=== PATIENT | male | born 1985 ===

== ENCOUNTER 2018-12-10 13:02 | Emergency (ER) | payer OTHER, SELFPAY ==
[2018-12-10 13:19] VITALS: BP 141/95; PULSE 118; RESP 20; TEMP 36.8; O2SAT 100
--- NOTE | 2018-12-10 14:37 | ED.SKABFB ---
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 He states that he has numerous spots on his truck which started out looking like small red ingrown hairs 2 days ago, however this particular spot is much worse today, he thinks irritated by his flight suit and harness ( he flew earlier). He has not had fever. He states he has only traveled locally recently and no known exposures however he was in a friend's hot tub over the weekend prior to this starting. He has some lesions on his back and 1 on his left gluteal area, none on the arms or legs. He denies any other new complaints. Related Data Home Medications Medication Instructions Recorded Confirmed emtricitabine-tenofovir (TDF) 1 tab PO DAILY 12/10/18 [Truvada] Previous Rx's Medication Instructions Recorded levofloxacin [Levaquin] 750 mg PO Q24H 10 Days #10 tab 12/10/18 Review of Systems <Zahida Garvey PA-C - Last Filed: 12/10/18 21:38> Review of Systems ROS Unobtainable: All systems reviewed & are unremarkable except as noted in HPI and below PFSH <Zahida Garvey PA-C - Last Filed: 12/10/18 21:38> Medical History Healthy adult male (Chronic) No pertinent family history (Chronic) Surgical History No pertinent past surgical history (Chronic) Social History Smoking Status: Never smoker Social History Smoking Status: Never smoker Exam <Zahida Garvey PA-C - Last Filed: 12/10/18 21:38> Narrative Exam Narrative: GENERAL APPEARANCE: Patient sitting comfortably, in no distress. LUNGS: Clear to auscultation bilaterally. HEART: Rate and rhythm regular without murmur, normal S1 and S2, no S3 or S4. DERMATOLOGIC: Erythematous papules scattered over the chest and back ranging in size from few mm to 1 cm in diameter. There are 2 lesions on the right nipple, and encompassing the left nipple there is erythema measuring 4 x 7 cm surrounding, slightly indurated, no fluctuance or warmth, moderately tender. There is an occasional pustular lesion, no vesicles. No drainage. No exanthem on the extremities Initial Vital Signs Initial Vital Signs: Vital Signs Temperature 98.3 F 12/10/18 13:19 Pulse Rate 118 H 12/10/18 13:19 Respiratory Rate 20 12/10/18 13:19 Blood Pressure 141/95 H 12/10/18 13:19 Pulse Oximetry 100 12/10/18 13:19 <Ancelmo Neal DO - Last Filed: 12/11/18 07:01> Initial Vital Signs Initial Vital Signs: Vital Signs Temperature 98.3 F 12/10/18 13:19 Pulse Rate 118 H 12/10/18 13:19 Respiratory Rate 20 12/10/18 13:19 Blood Pressure 141/95 H 12/10/18 13:19 Pulse Oximetry 100 12/10/18 13:19 Course <Zahida Garvey PA-C - Last Filed: 12/10/18 21:38> Additional Information: No clear abcess to drain today, multiple lesions, suspect the large 1 around the left nipple is exacerbated secondary to patient's flight harness. Advised to avoid wearing that. will treat with Levaquin due to patient being in hot tub prior to onset of this, though certainly may be from another source. Advised to follow up with medical at [facility] in the next day or 2 for recheck. Advised to return if acutely worsening and he is agreeable. Vital Signs - 8 hr 12/10/18 15:00 Pulse Rate 99 H Respiratory Rate 18 Blood Pressure [Left Arm] 134/76 Pulse Oximetry 98 <Ancelmo Neal DO - Last Filed: 12/11/18 07:01> Vital Signs - 8 hr 12/10/18 15:00 Pulse Rate 99 H Respiratory Rate 18 Blood Pressure [Left Arm] 134/76 Pulse Oximetry 98 Discharge Plan Departure Patient Disposition: Home Clinical Impression: Cellulitis Discharge Date/Time: 12/10/18 15:45 Interventions: ED Discharge Assessment Last Done: 12/10/18 15:46 Instructions: DI for Cellulitis -- Adult Activity Restrictions/Additional Instructions: [place] or return here if you have acutely worsening symptoms, i.e. rapidly spreading redness, pain, high fever. Otherwise, please start the antibiotic right away. [place] and avoid wearing or flight suit and harness and anything that may cause irritation to the area (keep open to air as much as possible ). I have prescribed an antibiotic that has action against hot tub bacteria, called Pseudomonas, as well as other common skin bugs. There is a black box warning on all antibiotics in this class regarding tendon problems and tendon ruptures. This is very rare, however if you have sudden pain or problems, i.e. in your Achilles (ankle ) tendons for example, you should stop the antibiotic right away and see your PCP. Prescriptions: New levofloxacin [Levaquin] 750 mg tablet 750 mg PO Q24H 10 Days Qty: 10 RF: 0 No Action Truvada 200-300 mg tablet 1 tab PO DAILY RF: 0 Referrals: [facility] [Provider Group] <Ancelmo Neal DO - Last Filed: 12/11/18 07:01> [facility] Attending Miguelito Attestation: I was available for consultation during this patient's emergency department encounter
[2018-12-10 15:00] VITALS: BP 134/76; PULSE 99; RESP 18; O2SAT 98
--- NOTE | 2018-12-10 15:44 | PC.NURSE ---
left nipple swollen on patient. red. no drainage noted. few scattered rashes noted over chest wall.
== END 2018-12-10 15:45 | disposition home or self-care (01) ==
PROVIDERS: Emergency Provider Internal Medicine
DX: L03.90 Cellulitis, unspecified (principal)
CPT/HCPCS: 99282